=== PATIENT | male | born 1955 | race American Indian/Alaskan Native ===

== ENCOUNTER 2022-03-28 09:16 | Outpatient (CLI) | payer OTHER ==
--- NOTE | 2022-03-28 10:11 | XRay Report ---
LUMBOSACRAL SPINE 3 VIEWS INDICATION: Back pain. COMPARISON: None. IMPRESSION: Normal alignment. The disc spaces appear preserved throughout the lumbar region. There is mild facet arthropathy at L1-2, L2-3 and L4-5. No acute osseous or soft tissue abnormality. BILATERAL FEET 2 VIEWS INDICATION: Chronic bilateral foot pain. COMPARISON: None. IMPRESSION: There is mild diffuse soft tissue swelling or pedal edema in both feet. There is mild sh ortening of the fourth metatarsal in the left foot which is probably posttraumatic in nature. Mild os teoarthritic joint space narrowing is noted in the first metatarsophalangeal joints of both feet. The remaining joint spaces are unremarkable. No erosive joint pathology. Small plantar spurs are noted bilaterally. No acute osseous abnormality or bone lesion is detected. Signer Name: Rodger Calero Jr, MD Signed: 03/28/2022 10:06 AM Workstation Name: [id number]
== END 2022-03-28 09:17 | disposition home or self-care (01) ==
LOC: XRAY 09:16
PROVIDERS: ATTEND Internal Medicine
DX: M19.072 Primary osteoarthritis, left ankle and foot (principal); M19.071 Primary osteoarthritis, right ankle and foot; M77.32 Calcaneal spur, left foot; M77.31 Calcaneal spur, right foot; M47.896 Other spondylosis, lumbar region
CPT/HCPCS: 72100